=== PATIENT | male | born 1995 | race Two or more races ===

== ENCOUNTER 2017-10-21 06:56 | Emergency (ER) | payer OTHER ==
[~2017-10-21] VITALS: Ht 170.2 cm; Wt 59.0 kg
[~2017-10-21 06:56] MED LIST: ACNE MED; ACNE TREATMENT28 GM TP; ALBU.083IS IH; ALBU4; ALBU90I INH; ALBU90OI INH; ALBU90OI6 INH; AMOX500 PO; Bactrim Ds Tab1 EACH PO; CEPH250A PO; CYCL10 PO; Cortisporin Ear10 ML RIGHTEAR; Cyclobenzaprine5 MG PO; DICL75ER PO; FLUO10 PO; FLUT44OIA IH; HYDACE5 PO; HYDROCODONE; IBUP600 PO; ISOT10 PO; MONT5TCH PO; Naprosyn500 MG PO; PROCODE120 PO; PROM25 PO; Percocet 5-3251 EACH PO; Phenergan25 M1 PO; Protonix40 MG PO; RXONDA4ODT MM; Tylenol With C1 EACH PO; Ultram50 MG PO; VARE1; Veetids 500500 MG PO; Z; Zithromax250 MG PO; Zofran Odt4 MG PO; Zofran Odt4 MG SL; Zofran Odt8 MG SL
[2017-10-21] MEDS ORDERED: [UNRECOGNIZED DRUG - OTHER] (07:32)
[2017-10-21] MEDS ORDERED: IBUP800 PO (08:56)
[2017-10-21] MEDS ORDERED: Zofran Odt4 MG SL (08:56)
== END 2017-10-21 09:12 | disposition home or self-care (01) ==
LOC: ER 06:56
DX: J02.9 Acute pharyngitis, unspecified (principal); B34.9 Viral infection, unspecified; B09 Unspecified viral infection characterized by skin and mucous membrane lesions; J45.909 Unspecified asthma, uncomplicated; Z91.018 Allergy to other foods; Z88.0 Allergy status to penicillin; Z87.891 Personal history of nicotine dependence
CPT/HCPCS: 36415; 87081; 87430; 96361; 96374; 99283; J2405; J7030

== ENCOUNTER → 2018-01-19 | Outpatient (CLI) | payer OTHER ==
[~2018-01-19] MED LIST changes: +IBUP800 PO; +[UNRECOGNIZED DRUG - OTHER]
[2018-01-22 23:11] LABS: CHLAMYDIA TRACHOMATIS, NAA Negative (Negative); NEISSERIA GONORRHOEAE, NAA Negative (Negative)
== END ==
LOC: LAB EV 06:00
PROVIDERS: Physician Assistant
DX: R35.0 Frequency of micturition (principal); R30.0 Dysuria
CPT/HCPCS: 87491; 87591

== ENCOUNTER → 2019-03-05 | Outpatient (CLI) | payer BC, OTHER ==
[~2019-03-05] MED LIST changes: +Pepto-Bismol262 M1 PO
[2019-03-06 16:45] LABS: U Amphetamine Screen Not Detected; U Barbituate Screen Not Detected; U Benzodiazapine Screen Not Detected; U Buprenorphine Screen Not Detected; U Cannabinoids Screen DETECTED; U Cocaine Screen Not Detected; U Methadone Screen Not Detected; U Methamphetamine Screen Not Detected; U Opiates Screen Not Detected; U Oxycodone Screen Not Detected; U Phencyclidine Screen Not Detected; U Propoxyphene Screen Not Detected
== END ==
LOC: LAB SHORT 16:21 → LAB 16:21
PROVIDERS: Family Medicine
DX: Z51.81 Encounter for therapeutic drug level monitoring (principal); Z79.899 Other long term (current) drug therapy

== ENCOUNTER → 2019-03-29 | Outpatient (CLI) | payer BC, OTHER ==
[2019-03-29 16:51] LABS: U Amphetamine Screen Not Detected; U Barbituate Screen Not Detected; U Benzodiazapine Screen Not Detected; U Buprenorphine Screen Not Detected; U Cannabinoids Screen Not Detected; U Cocaine Screen Not Detected; U Methadone Screen Not Detected; U Methamphetamine Screen Not Detected; U Opiates Screen Not Detected; U Oxycodone Screen Not Detected; U Phencyclidine Screen Not Detected; U Propoxyphene Screen Not Detected
== END | disposition home or self-care (01) ==
LOC: LAB SHORT 14:30 → LAB 14:30
PROVIDERS: Family Medicine
DX: Z51.81 Encounter for therapeutic drug level monitoring (principal); Z79.891 Long term (current) use of opiate analgesic

== ENCOUNTER → 2019-04-20 | Outpatient (CLI) | payer BC, OTHER ==
[2019-04-25 00:06] LABS: CHLAMYDIA TRACHOMATIS, NAA Negative (Negative); NEISSERIA GONORRHOEAE, NAA Negative (Negative)
== END | disposition home or self-care (01) ==
LOC: LAB SHORT 13:15 → LAB 13:15
PROVIDERS: Family Medicine
DX: Z11.3 Encounter for screening for infections with a predominantly sexual mode of transmission (principal)
CPT/HCPCS: 87491; 87591

== ENCOUNTER → 2019-04-29 | Outpatient (CLI) | payer OTHER | LOC: LAB SHORT 13:10 → LAB 13:10 | DX: R30.0 Dysuria (principal); R36.9 Urethral discharge, unspecified | CPT/HCPCS: 87086; 87529 ==

== ENCOUNTER → 2019-05-11 | Outpatient (CLI) | payer OTHER | LOC: OLS 11:23 → LAB SHORT 11:23 → LAB 11:23 | DX: R21 Rash and other nonspecific skin eruption (principal); R36.9 Urethral discharge, unspecified ==

== ENCOUNTER 2019-07-04 20:47 | Emergency (ER) | payer BC, OTHER ==
[~2019-07-04] VITALS: Ht 170.2 cm; Wt 54.4 kg
[2019-07-04 21:27] LABS: Source, Urine Clean Catch
[2019-07-04 21:30] LABS: Appearance, Urine Clear (Clear); Bilirubin, Urine Neg (Neg); Blood, Urine Neg (Neg); Color, Urine Yellow (P-Yellow); Glucose Qualitative, Urine Neg (Neg); Ketones, Urine Neg (Neg); Leukocyte Esterase, Urine 1+ (Neg); Nitrite, Urine Neg (Neg); Protein, Urine Neg (Neg); Urobilinogen, Urine NORM (Normal)
[2019-07-04 21:46] LABS: Bacteria Not Seen /hpf; Red Blood Cells, Urine Not Seen /hpf (0-2); Squamous Epithelial Cells Not Seen /hpf (Few); White Blood Cells, Urine Rare /hpf (0-5)
[2019-07-05] MEDS ORDERED: CEPH500 PO (00:01)
[2019-07-09 16:06] LABS: CHLAMYDIA TRACHOMATIS, NAA Negative (Negative); NEISSERIA GONORRHOEAE, NAA Negative (Negative)
== END 2019-07-05 00:15 | disposition home or self-care (01) ==
LOC: ER 20:47
PROVIDERS: Physician Assistant
DX: R30.0 Dysuria (principal); Z91.018 Allergy to other foods; Z87.891 Personal history of nicotine dependence; Z87.448 Personal history of other diseases of urinary system
CPT/HCPCS: 81001; 87086; 87491; 87591; 99283; A9270-GY

== ENCOUNTER → 2019-10-02 | Outpatient (CLI) | payer BC ==
[~2019-10-02] MED LIST changes: +CEPH500 PO
[2019-10-05 00:10] LABS: CHLAMYDIA TRACHOMATIS, NAA Negative (Negative); NEISSERIA GONORRHOEAE, NAA Negative (Negative)
== END ==
LOC: LAB SHORT 16:26 → LAB 16:26
PROVIDERS: Nurse Practitioner Family
DX: Z11.3 Encounter for screening for infections with a predominantly sexual mode of transmission (principal)
CPT/HCPCS: 87491; 87591

== ENCOUNTER 2020-06-13 11:07 | Emergency (ER) | payer BC ==
[~2020-06-13] VITALS: Ht 170.2 cm; Wt 55.8 kg
[2020-06-13 11:30] LABS: Source, Urine Clean Catch
[2020-06-13] MEDS ORDERED: HYDROCODONE-AC1 EAC7 PO (11:36)
[2020-06-13] MEDS ORDERED: Klonopin0.5 MG PO (11:36)
[2020-06-13] MEDS ORDERED: ACYCLOVIR400 MG PO (11:37)
[2020-06-13] MEDS ORDERED: AMPDEX10 (11:37)
[2020-06-13 11:41] LABS: Appearance, Urine Clear (Clear); Bilirubin, Urine Neg (Neg); Blood, Urine Neg (Neg); Color, Urine Yellow (P-Yellow); Glucose Qualitative, Urine Neg (Neg); Ketones, Urine Neg (Neg); Leukocyte Esterase, Urine Neg (Neg); Nitrite, Urine Neg (Neg); Protein, Urine Neg (Neg); Urobilinogen, Urine NORM (Normal); pH, Urine 6.5 (5.0-8.0)
[2020-06-13 11:45] LABS: BASOPHILS ABSOLUTE AUTO 0.01 K/mm3 (0.00-0.23); BASOPHILS PERCENT AUTO 0 % (0-2); EOSINOPHILS ABSOLUTE AUTO 0.01 K/mm3 (0.00-0.68); EOSINOPHILS PERCENT AUTO 0 % (0-6); Hematocrit 44.2 % (37.0-53.0); Hemoglobin 15.1 g/dL (13.5-17.5); IMMATURE GRAN ABSOLUTE AUTO 0.01 K/mm3 (0.00-0.10); IMMATURE GRAN PERCENT AUTO 0 % (0-1); LYMPHOCYTES ABSOLUTE AUTO 1.34 K/mm3 (0.84-5.20); LYMPHOCYTES PERCENT AUTO 23 % (21-46); MONOCYTES ABSOLUTE AUTO 0.45 K/mm3 (0.16-1.47); MONOCYTES PERCENT AUTO 8 % (4-13); Mean Corpuscular HGB 31.5 pg (26.0-34.0); Mean Corpuscular HGB Conc 34.2 g/dL (31.5-36.5); Mean Corpuscular Volume 92 fL (80-100); Mean Platelet Volume 11.1 fL (9.1-12.4); NEUTROPHILS PERCENT AUTO 69 % (41-73); Platelet Count 202 K/mm3 (150-400); RDW Coefficient Variation 10.9 % (11.7-14.2); RDW Standard Deviation 37.2 fL (35.1-46.3); White Blood Cell Count 5.82 K/mm3 (4.00-11.30)
[2020-06-13 12:01] LABS: Alanine Aminotransfer (ALT/SGP 22 U/L (12-78); Albumin, Blood 4.6 g/dL (3.4-5.0); Albumin/Globulin Ratio 1.5 (0.8-1.8); Alk Phos 64 U/L (50-136); Anion Gap 4 mmol/L (6-16); Aspartate Aminotrans (AST/SGOT 26 U/L (12-37); Bilirubin, Total 2.1 mg/dL (0.1-1.0); Blood Urea Nitrogen 13 mg/dL (8-24); Bun/Creatinine Ratio 17.3 (12.0-20.0); CO2, Blood 28 mmol/L (21-32); Calcium, Blood 9.3 mg/dL (8.5-10.1); Chloride, Blood 109 mmol/L (98-108); Creatinine, Blood 0.75 mg/dL (0.60-1.20); Globulin, Blood 3.1 g/dL (2.2-4.0); Glomerular Filtration Rate >60 (60-); Glucose, Blood 96 mg/dL (70-99); Potassium, Blood 4.2 mmol/L (3.5-5.5); Sodium, Blood 141 mmol/L (136-145); Total Protein, Blood 7.7 g/dL (6.4-8.2)
[2020-06-13 12:04] LABS: International Normalized Ratio 1.09; Prothrombin Time Results 11.6 Sec (9.7-11.5)
== END 2020-06-13 13:05 | disposition home or self-care (01) ==
LOC: ER 11:07
PROVIDERS: Emergency Medicine
DX: K62.9 Disease of anus and rectum, unspecified (principal); F32.9 Major depressive disorder, single episode, unspecified; J45.909 Unspecified asthma, uncomplicated; Z79.899 Other long term (current) drug therapy; Z87.891 Personal history of nicotine dependence; Z91.02 Food additives allergy status; Z91.018 Allergy to other foods
CPT/HCPCS: 36415; 80053; 81003; 82272; 85025; 85610; 85730; 86850; 86900; 86901; 99283

== ENCOUNTER → 2020-06-26 | Outpatient (CLI) | payer BC ==
[~2020-06-26] MED LIST changes: +ACYCLOVIR400 MG PO; +ADDERALL 10 MG10 MG PO; +AMPDEX10; +HYDROCODONE-AC1 EAC7 PO; +Klonopin0.5 MG PO
[2020-06-27 13:10] LABS: ADENOVIRUS F 40/41 Not Detected (Not Detected); ASTROVIRUS Not Detected (Not Detected); C DIFFICILE TOXIN A/B Not Detected (Not Detected); CAMPYLOBACTER Not Detected (Not Detected); CRYPTOSPORIDIUM Not Detected (Not Detected); CYCLOSPORA CAYETANENSIS Not Detected (Not Detected); ENTAMOEBA HISTOLYTICA Not Detected (Not Detected); ENTEROAGGREGATIVE E COLI Not Detected (Not Detected); ENTEROPATHOGENIC E COLI Not Detected (Not Detected); ENTEROTOXIGENIC E COLI Not Detected (Not Detected); GIARDIA LAMBLIA Not Detected (Not Detected); NOROVIRUS GI/GII Not Detected (Not Detected); PLESIOMONAS SHIGELLOIDES Not Detected (Not Detected); ROTAVIRUS A Not Detected (Not Detected); SALMONELLA Not Detected (Not Detected); SAPOVIRUS Not Detected (Not Detected); SHIGA-TOXIN-PRODUCING E COLI Not Detected (Not Detected); SHIGELLA/ENTEROINVASIVE E COLI Not Detected (Not Detected); VIBRIO Not Detected (Not Detected); VIBRIO CHOLERAE Not Detected (Not Detected); YERSINIA ENTEROCOLITICA Not Detected (Not Detected)
== END | disposition home or self-care (01) ==
LOC: LAB SHORT 08:00 → LAB 08:00 → LAB FUT 06-15 11:15
PROVIDERS: Internal Medicine Gastroenterology
DX: R19.7 Diarrhea, unspecified (principal)
CPT/HCPCS: 0097U

== ENCOUNTER 2020-07-02 09:16 | Day surgery (SDC) | payer BC, OTHER ==
[~2020-07-02] VITALS: Ht 170.2 cm; Wt 53.8 kg
[~2020-07-02 09:16] MED LIST changes: -ADDERALL 10 MG10 MG PO
[2020-07-02] MEDS ORDERED: ADDERALL 10 MG10 MG PO (09:29)
--- NOTE | 2020-07-02 12:24 | NUR ---
07/02/20 1224 Angela Stokes History, Chart, Medications and Allergies reviewed before start of procedure.PATIENT DETERMINED TO BE ASA APPROPRIATE FOR PROPOFOL SEDATION PRIOR TO START OF PROCEDURE BY .MONITOR INTACT WITH CONTINUOUS PULSE OXIMETRY AND INTERMITTENT BP.3-LEAD EKG REVIEWED WITH PHYSICIAN PRIOR TO START OF PROCEDURE.O2 VIA N/C INTACT THROUGHOUT SEDATION/PROCEDURE.
--- NOTE | 2020-07-02 13:03 | NUR ---
PT WITH C/O 01/30 "CRAMPING, PRESSURE" IN ABDOMEN. DR. JESSICA HAD CONSULTED WITH THE PT AND ADVISED HIM TO EXPECT SOME ABDOMEN PAIN. DR. JESSICA WAS CONSULTED VIA PHONE AND ORDERED 4 MG ZOFRAN IV AND LR IV FLUID TO INCREASE TO A STEADY DRIP. PT ALSO GIVEN WARM FLUIDS TO DRINK. VSS. WILL CONTINUE TO MONITOR.
--- NOTE | 2020-07-02 13:30 | NUR ---
ASSUMED CARE OF PT. PT C/O MIDEPIGASTRIC PAIN DISCRIBED CRAMPING. PT GIVEN PHENERGAN 25MG DILUTE IN 10CC AND GIVEN SLOWING IN RUNNING IV. PT BED LAYED BACK FOR PT COMFORT. WILL CONTINUE TO MONITOR PT.
--- NOTE | 2020-07-02 14:30 | NUR ---
Patient up to Ambulate independently. Gait steady. Discharge instructions reviewed with patient. Patient verbalizes understanding. Copy given to patient to take home. Discharged via wheelchair to private car for ride home. PT STATES HE STILL "FEELS PRESSURE IN THE ABDOMEN, BUT FEELS COMFORTABLE TO GO HOME." PT WAS ADVISED TO DRINK WARM FLUIDS, TAKE OTC PAIN RELIEVER AND TO WALK AROUND TO ENCOURGE THE GAS TO ESCAPE. PT ADVISED TO SEEK MEDICAL ATTENTION IF PAIN CONTINUES OR WORSENS OVER THE NEXT 24 HRS. PT STATES UNDERSTANDING.
== END 2020-07-02 23:11 | disposition home or self-care (01) ==
LOC: ORSCMMR 09:16 → ORD 10:00 → ORSCMMR 23:11
PROVIDERS: Internal Medicine Gastroenterology
PROC: 0DBE8ZX Excision of Large Intestine, Via Natural or Artificial Opening Endoscopic, Diagnostic (ICD-10-PCS; principal; 2020-07-02 10:00)
DX: K62.5 Hemorrhage of anus and rectum (principal); R19.7 Diarrhea, unspecified; R10.84 Generalized abdominal pain
CPT/HCPCS: 88305; J2405; J2550; J2704; J7120

== ENCOUNTER → 2020-08-28 | Outpatient (CLI) | payer BC, OTHER ==
[~2020-08-28] MED LIST changes: +ADDERALL 10 MG10 MG PO; +Bentyl20 MG PO; +IMODIUM A-D2 M1; +LITH300C PO; +ONDA4ODT MM; +Pepcid20 MG PO; +Tenex1 MG PO
[2020-08-28 13:15] LABS: BASOPHILS ABSOLUTE AUTO 0.03 K/mm3 (0.00-0.23); BASOPHILS PERCENT AUTO 0 % (0-2); EOSINOPHILS ABSOLUTE AUTO 0.01 K/mm3 (0.00-0.68); EOSINOPHILS PERCENT AUTO 0 % (0-6); Hematocrit 47.2 % (37.0-53.0); Hemoglobin 16.7 g/dL (13.5-17.5); IMMATURE GRAN ABSOLUTE AUTO 0.02 K/mm3 (0.00-0.10); IMMATURE GRAN PERCENT AUTO 0 % (0-1); LYMPHOCYTES ABSOLUTE AUTO 1.53 K/mm3 (0.84-5.20); LYMPHOCYTES PERCENT AUTO 16 % (21-46); MONOCYTES ABSOLUTE AUTO 0.62 K/mm3 (0.16-1.47); MONOCYTES PERCENT AUTO 7 % (4-13); Mean Corpuscular HGB 31.9 pg (26.0-34.0); Mean Corpuscular HGB Conc 35.4 g/dL (31.5-36.5); Mean Corpuscular Volume 90 fL (80-100); NEUTROPHILS ABSOLUTE AUTO 7.25 K/mm3 (1.96-9.15); NEUTROPHILS PERCENT AUTO 77 % (41-73); Platelet Count 233 K/mm3 (150-400); RDW Coefficient Variation 10.9 % (11.7-14.2); RDW Standard Deviation 35.4 fL (35.1-46.3); Red Blood Cell Count 5.23 M/mm3 (4.30-5.90); White Blood Cell Count 9.46 K/mm3 (4.00-11.30)
[2020-08-28 13:23] LABS: Alanine Aminotransfer (ALT/SGP 27 U/L (12-78); Albumin, Blood 5.1 g/dL (3.4-5.0); Albumin/Globulin Ratio 1.6 (0.8-1.8); Alk Phos 61 U/L (40-126); Anion Gap 9 mmol/L (6-16); Aspartate Aminotrans (AST/SGOT 14 U/L (12-37); Bilirubin, Total 4.1 mg/dL (0.1-1.0); Blood Urea Nitrogen 12 mg/dL (8-24); Bun/Creatinine Ratio 12.4 (12.0-20.0); CO2, Blood 27 mmol/L (21-32); Chloride, Blood 100 mmol/L (98-108); Creatinine, Blood 0.97 mg/dL (0.60-1.20); Globulin, Blood 3.2 g/dL (2.2-4.0); Glomerular Filtration Rate >60 (60-); Glucose, Blood 103 mg/dL (70-99); Potassium, Blood 3.9 mmol/L (3.5-5.5); Sodium, Blood 136 mmol/L (136-145); Total Protein, Blood 8.3 g/dL (6.4-8.2)
[2020-08-28 14:21] LABS: Bilirubin, Direct 0.3 mg/dL (0.0-0.3); Bilirubin, Indirect 3.8 mg/dL (0.1-0.7)
== END | disposition home or self-care (01) ==
LOC: LAB SHORT 13:08 → PLD 13:08
PROVIDERS: Physician Assistant
DX: R00.2 Palpitations (principal); E80.6 Other disorders of bilirubin metabolism
CPT/HCPCS: 80053; 82247; 82248; 84443; 85025

== ENCOUNTER 2020-10-31 14:00 | Emergency (ER) | payer OTHER ==
[~2020-10-31] VITALS: Ht 167.6 cm; Wt 56.7 kg
[~2020-10-31 14:00] MED LIST changes: -Bentyl20 MG PO; -IMODIUM A-D2 M1; -LITH300C PO; -ONDA4ODT MM; -Pepcid20 MG PO; -Tenex1 MG PO
[2020-10-31] MEDS ORDERED: Tenex1 MG PO (14:22)
[2020-10-31 15:09] LABS: BASOPHILS ABSOLUTE AUTO 0.02 K/mm3 (0.00-0.23); BASOPHILS PERCENT AUTO 0 % (0-2); EOSINOPHILS ABSOLUTE AUTO 0.05 K/mm3 (0.00-0.68); EOSINOPHILS PERCENT AUTO 1 % (0-6); Hematocrit 39.8 % (37.0-53.0); Hemoglobin 14.2 g/dL (13.5-17.5); IMMATURE GRAN ABSOLUTE AUTO 0.01 K/mm3 (0.00-0.10); IMMATURE GRAN PERCENT AUTO 0 % (0-1); LYMPHOCYTES ABSOLUTE AUTO 1.31 K/mm3 (0.84-5.20); LYMPHOCYTES PERCENT AUTO 21 % (21-46); MONOCYTES ABSOLUTE AUTO 0.46 K/mm3 (0.16-1.47); MONOCYTES PERCENT AUTO 7 % (4-13); Mean Corpuscular HGB 32.4 pg (26.0-34.0); Mean Corpuscular HGB Conc 35.7 g/dL (31.5-36.5); Mean Corpuscular Volume 91 fL (80-100); Mean Platelet Volume 10.6 fL (9.1-12.4); NEUTROPHILS ABSOLUTE AUTO 4.37 K/mm3 (1.96-9.15); NEUTROPHILS PERCENT AUTO 70 % (41-73); Platelet Count 172 K/mm3 (150-400); Red Blood Cell Count 4.38 M/mm3 (4.30-5.90); White Blood Cell Count 6.22 K/mm3 (4.00-11.30)
[2020-10-31 15:31] LABS: Alanine Aminotransfer (ALT/SGP 20 U/L (12-78); Albumin/Globulin Ratio 1.4 (0.8-1.8); Alk Phos 54 U/L (50-136); Anion Gap 3 mmol/L (6-16); Aspartate Aminotrans (AST/SGOT 15 U/L (12-37); Bilirubin, Total 2.8 mg/dL (0.1-1.0); Blood Urea Nitrogen 12 mg/dL (8-24); CO2, Blood 29 mmol/L (21-32); Calcium, Blood 8.7 mg/dL (8.5-10.1); Chloride, Blood 110 mmol/L (98-108); Creatinine, Blood 0.86 mg/dL (0.60-1.20); Globulin, Blood 2.8 g/dL (2.2-4.0); Glomerular Filtration Rate >60 (60-); Glucose, Blood 94 mg/dL (70-99); Potassium, Blood 3.7 mmol/L (3.5-5.5); Sodium, Blood 142 mmol/L (136-145); Total Protein, Blood 6.8 g/dL (6.4-8.2)
== END 2020-10-31 16:12 | disposition home or self-care (01) ==
LOC: ER 14:00
PROVIDERS: Physician Assistant
DX: L27.0 Generalized skin eruption due to drugs and medicaments taken internally (principal); R42 Dizziness and giddiness; T46.5X5A Adverse effect of other antihypertensive drugs, initial encounter; Z87.891 Personal history of nicotine dependence; Z79.899 Other long term (current) drug therapy
CPT/HCPCS: 80053; 85025; 99283

== ENCOUNTER 2020-11-24 06:12 | Emergency (ER) | payer OTHER ==
[~2020-11-24] VITALS: Ht 170.2 cm; Wt 54.4 kg
[~2020-11-24 06:12] MED LIST changes: -Bentyl20 MG PO; -IMODIUM A-D2 M1; -LITH300C PO; -ONDA4ODT MM; -Pepcid20 MG PO
[2020-11-24] MEDS ORDERED: LITH300C PO ×2 (06:34→06:35)
[2020-11-24 07:39] LABS: BASOPHILS ABSOLUTE AUTO 0.03 K/mm3 (0.00-0.23); BASOPHILS PERCENT AUTO 0 % (0-2); EOSINOPHILS ABSOLUTE AUTO 0.08 K/mm3 (0.00-0.68); EOSINOPHILS PERCENT AUTO 1 % (0-6); Hematocrit 43.9 % (37.0-53.0); Hemoglobin 15.1 g/dL (13.5-17.5); IMMATURE GRAN ABSOLUTE AUTO 0.06 K/mm3 (0.00-0.10); IMMATURE GRAN PERCENT AUTO 0 % (0-1); LYMPHOCYTES ABSOLUTE AUTO 1.52 K/mm3 (0.84-5.20); LYMPHOCYTES PERCENT AUTO 10 % (21-46); MONOCYTES ABSOLUTE AUTO 0.59 K/mm3 (0.16-1.47); MONOCYTES PERCENT AUTO 4 % (4-13); Mean Corpuscular HGB 32.2 pg (26.0-34.0); Mean Corpuscular HGB Conc 34.4 g/dL (31.5-36.5); Mean Corpuscular Volume 94 fL (80-100); Mean Platelet Volume 11.4 fL (9.1-12.4); NEUTROPHILS ABSOLUTE AUTO 12.51 K/mm3 (1.96-9.15); NEUTROPHILS PERCENT AUTO 85 % (41-73); Platelet Count 173 K/mm3 (150-400); RDW Coefficient Variation 11.2 % (11.7-14.2); RDW Standard Deviation 38.2 fL (35.1-46.3); Red Blood Cell Count 4.69 M/mm3 (4.30-5.90); White Blood Cell Count 14.79 K/mm3 (4.00-11.30)
[2020-11-24 07:59] LABS: Alanine Aminotransfer (ALT/SGP 16 U/L (12-78); Albumin, Blood 4.5 g/dL (3.4-5.0); Albumin/Globulin Ratio 1.6 (0.8-1.8); Alk Phos 67 U/L (50-136); Anion Gap 2 mmol/L (6-16); Aspartate Aminotrans (AST/SGOT 12 U/L (12-37); Bilirubin, Total 1.5 mg/dL (0.1-1.0); Blood Urea Nitrogen 14 mg/dL (8-24); Bun/Creatinine Ratio 14.5 (12.0-20.0); CO2, Blood 30 mmol/L (21-32); Calcium, Blood 8.7 mg/dL (8.5-10.1); Chloride, Blood 106 mmol/L (98-108); Creatinine, Blood 0.97 mg/dL (0.60-1.20); Globulin, Blood 2.9 g/dL (2.2-4.0); Glomerular Filtration Rate >60 (60-); Glucose, Blood 91 mg/dL (70-99); Potassium, Blood 3.6 mmol/L (3.5-5.5); Sodium, Blood 138 mmol/L (136-145); Total Protein, Blood 7.4 g/dL (6.4-8.2); Troponin I <0.015 ng/mL (0.000-0.040)
== END 2020-11-24 09:56 | disposition home or self-care (01) ==
LOC: ER 06:12
PROVIDERS: Emergency Medicine
DX: R04.2 Hemoptysis (principal); Z87.891 Personal history of nicotine dependence
CPT/HCPCS: 36415; 71046; 80053; 83690; 84484; 85025; 93005; 93010; 99284-25

== ENCOUNTER → 2020-11-24 | Outpatient (CLI) | payer OTHER ==
[~2020-11-24] MED LIST changes: +Bentyl20 MG PO; +IMODIUM A-D2 M1; +LITH300C PO; +ONDA4ODT MM; +Pepcid20 MG PO; +Tenex1 MG PO
== END | disposition home or self-care (01) ==
LOC: LAB SHORT 16:20 → PLD 16:20
DX: N39.0 Urinary tract infection, site not specified (principal)
CPT/HCPCS: 87086

== ENCOUNTER 2020-12-01 10:24 | Emergency (ER) | payer OTHER ==
[~2020-12-01] VITALS: Ht 170.2 cm; Wt 55.8 kg
[~2020-12-01 10:24] MED LIST changes: +LITH300C PO
[2020-12-01 12:55] LABS: BASOPHILS ABSOLUTE AUTO 0.02 K/mm3 (0.00-0.23); BASOPHILS PERCENT AUTO 0 % (0-2); EOSINOPHILS ABSOLUTE AUTO 0.02 K/mm3 (0.00-0.68); EOSINOPHILS PERCENT AUTO 0 % (0-6); Hematocrit 42.2 % (37.0-53.0); Hemoglobin 14.5 g/dL (13.5-17.5); IMMATURE GRAN ABSOLUTE AUTO 0.01 K/mm3 (0.00-0.10); IMMATURE GRAN PERCENT AUTO 0 % (0-1); LYMPHOCYTES ABSOLUTE AUTO 0.77 K/mm3 (0.84-5.20); LYMPHOCYTES PERCENT AUTO 13 % (21-46); MONOCYTES PERCENT AUTO 5 % (4-13); Mean Corpuscular HGB Conc 34.4 g/dL (31.5-36.5); Mean Corpuscular Volume 93 fL (80-100); Mean Platelet Volume 11.1 fL (9.1-12.4); NEUTROPHILS ABSOLUTE AUTO 4.86 K/mm3 (1.96-9.15); NEUTROPHILS PERCENT AUTO 81 % (41-73); Platelet Count 204 K/mm3 (150-400); RDW Coefficient Variation 10.8 % (11.7-14.2); RDW Standard Deviation 36.6 fL (35.1-46.3); Red Blood Cell Count 4.53 M/mm3 (4.30-5.90); White Blood Cell Count 5.98 K/mm3 (4.00-11.30)
[2020-12-01 13:13] LABS: Alanine Aminotransfer (ALT/SGP 19 U/L (12-78); Albumin, Blood 4.1 g/dL (3.4-5.0); Albumin/Globulin Ratio 1.2 (0.8-1.8); Alk Phos 56 U/L (50-136); Anion Gap 4 mmol/L (6-16); Aspartate Aminotrans (AST/SGOT 12 U/L (12-37); Bilirubin, Total 0.9 mg/dL (0.1-1.0); Blood Urea Nitrogen 7 mg/dL (8-24); Bun/Creatinine Ratio 9.1 (12.0-20.0); CO2, Blood 26 mmol/L (21-32); Calcium, Blood 8.7 mg/dL (8.5-10.1); Chloride, Blood 112 mmol/L (98-108); Creatinine, Blood 0.77 mg/dL (0.60-1.20); Globulin, Blood 3.4 g/dL (2.2-4.0); Glomerular Filtration Rate >60 (60-); Glucose, Blood 90 mg/dL (70-99); Potassium, Blood 3.6 mmol/L (3.5-5.5); Sodium, Blood 142 mmol/L (136-145); Total Protein, Blood 7.5 g/dL (6.4-8.2)
[2020-12-01] MEDS ORDERED: ONDA4ODT MM (14:12)
[2020-12-01] MEDS ORDERED: PROM25 PO (14:12)
== END 2020-12-01 14:30 | disposition home or self-care (01) ==
LOC: ER 10:24
PROVIDERS: Emergency Medicine
DX: S06.0X0A Concussion without loss of consciousness, initial encounter (principal); Z79.899 Other long term (current) drug therapy; Z87.891 Personal history of nicotine dependence
CPT/HCPCS: 70450; 80053; 83690; 85025; 96374; 96375; 99284-25; J1885; J2550; J7030

== ENCOUNTER 2020-12-04 10:04 | Emergency (ER) | payer OTHER ==
[~2020-12-04] VITALS: Ht 170.2 cm; Wt 54.4 kg
[~2020-12-04 10:04] MED LIST changes: +ONDA4ODT MM
[2020-12-04] MEDS ORDERED: IMODIUM A-D2 M1 (10:18)
[2020-12-04 10:39] LABS: BASOPHILS ABSOLUTE AUTO 0.03 K/mm3 (0.00-0.23); BASOPHILS PERCENT AUTO 1 % (0-2); EOSINOPHILS ABSOLUTE AUTO 0.01 K/mm3 (0.00-0.68); EOSINOPHILS PERCENT AUTO 0 % (0-6); Hematocrit 42.2 % (37.0-53.0); Hemoglobin 15.3 g/dL (13.5-17.5); IMMATURE GRAN ABSOLUTE AUTO 0.01 K/mm3 (0.00-0.10); IMMATURE GRAN PERCENT AUTO 0 % (0-1); LYMPHOCYTES PERCENT AUTO 12 % (21-46); MONOCYTES ABSOLUTE AUTO 0.38 K/mm3 (0.16-1.47); MONOCYTES PERCENT AUTO 6 % (4-13); Mean Corpuscular HGB 32.6 pg (26.0-34.0); Mean Corpuscular HGB Conc 36.3 g/dL (31.5-36.5); Mean Corpuscular Volume 90 fL (80-100); NEUTROPHILS ABSOLUTE AUTO 4.81 K/mm3 (1.96-9.15); NEUTROPHILS PERCENT AUTO 81 % (41-73); Platelet Count 223 K/mm3 (150-400); RDW Standard Deviation 35.9 fL (35.1-46.3); Red Blood Cell Count 4.69 M/mm3 (4.30-5.90); White Blood Cell Count 5.94 K/mm3 (4.00-11.30)
[2020-12-04 10:55] LABS: Alanine Aminotransfer (ALT/SGP 20 U/L (12-78); Albumin, Blood 4.7 g/dL (3.4-5.0); Albumin/Globulin Ratio 1.5 (0.8-1.8); Alk Phos 61 U/L (50-136); Anion Gap 6 mmol/L (6-16); Aspartate Aminotrans (AST/SGOT 14 U/L (12-37); Bilirubin, Total 1.1 mg/dL (0.1-1.0); Blood Urea Nitrogen 7 mg/dL (8-24); Bun/Creatinine Ratio 9.2 (12.0-20.0); CO2, Blood 25 mmol/L (21-32); Calcium, Blood 9.2 mg/dL (8.5-10.1); Chloride, Blood 109 mmol/L (98-108); Creatinine, Blood 0.76 mg/dL (0.60-1.20); Globulin, Blood 3.1 g/dL (2.2-4.0); Glomerular Filtration Rate >60 (60-); Glucose, Blood 130 mg/dL (70-99); Potassium, Blood 3.8 mmol/L (3.5-5.5); Sodium, Blood 140 mmol/L (136-145); Total Protein, Blood 7.8 g/dL (6.4-8.2)
[2020-12-04] MEDS ORDERED: ONDA4ODT MM (12:49)
[2020-12-04] MEDS ORDERED: Bentyl20 MG PO (12:49)
[2020-12-04] MEDS ORDERED: Pepcid20 MG PO (12:59)
== END 2020-12-04 13:10 | disposition home or self-care (01) ==
LOC: ER 10:04
PROVIDERS: Emergency Medicine
DX: R10.12 Left upper quadrant pain (principal); R19.7 Diarrhea, unspecified; R11.2 Nausea with vomiting, unspecified; Z79.899 Other long term (current) drug therapy; Z87.891 Personal history of nicotine dependence; K58.0 Irritable bowel syndrome with diarrhea
CPT/HCPCS: 0097U; 36415; 71045; 80053; 83690; 83735; 85025; 93005; 93010; 96372-59; 96374; 96375; 99284-25; J0500; J2405; J7120

== ENCOUNTER → 2021-02-05 | Outpatient (CLI) | payer OTHER ==
[~2021-02-05] MED LIST changes: +Bentyl20 MG PO; +IMODIUM A-D2 M1; +Pepcid20 MG PO
[2021-02-05 17:43] LABS: BASOPHILS ABSOLUTE AUTO 0.02 K/mm3 (0.00-0.23); BASOPHILS PERCENT AUTO 0 % (0-2); EOSINOPHILS ABSOLUTE AUTO 0.03 K/mm3 (0.00-0.68); EOSINOPHILS PERCENT AUTO 0 % (0-6); Hematocrit 42.9 % (37.0-53.0); Hemoglobin 15.9 g/dL (13.5-17.5); IMMATURE GRAN ABSOLUTE AUTO 0.03 K/mm3 (0.00-0.10); IMMATURE GRAN PERCENT AUTO 0 % (0-1); LYMPHOCYTES ABSOLUTE AUTO 1.29 K/mm3 (0.84-5.20); LYMPHOCYTES PERCENT AUTO 13 % (21-46); MONOCYTES ABSOLUTE AUTO 0.53 K/mm3 (0.16-1.47); MONOCYTES PERCENT AUTO 6 % (4-13); Mean Corpuscular HGB 32.8 pg (26.0-34.0); Mean Corpuscular HGB Conc 37.1 g/dL (31.5-36.5); Mean Corpuscular Volume 89 fL (80-100); Mean Platelet Volume 10.7 fL (9.1-12.4); NEUTROPHILS ABSOLUTE AUTO 7.71 K/mm3 (1.96-9.15); NEUTROPHILS PERCENT AUTO 80 % (41-73); Platelet Count 222 K/mm3 (150-400); RDW Standard Deviation 35.5 fL (35.1-46.3); Red Blood Cell Count 4.85 M/mm3 (4.30-5.90); White Blood Cell Count 9.61 K/mm3 (4.00-11.30)
[2021-02-05 18:05] LABS: Alanine Aminotransfer (ALT/SGP 20 U/L (12-78); Albumin, Blood 4.6 g/dL (3.4-5.0); Albumin/Globulin Ratio 1.5 (0.8-1.8); Alk Phos 74 U/L (40-126); Anion Gap 9 mmol/L (6-16); Aspartate Aminotrans (AST/SGOT 13 U/L (12-37); Bilirubin, Total 1.6 mg/dL (0.1-1.0); Blood Urea Nitrogen 11 mg/dL (8-24); Bun/Creatinine Ratio 15.1 (12.0-20.0); CO2, Blood 29 mmol/L (21-32); Calcium, Blood 8.7 mg/dL (8.5-10.1); Chloride, Blood 103 mmol/L (98-108); Creatinine, Blood 0.73 mg/dL (0.60-1.20); Globulin, Blood 3.1 g/dL (2.2-4.0); Glomerular Filtration Rate >60 (60-); Glucose, Blood 163 mg/dL (70-99); Potassium, Blood 3.8 mmol/L (3.5-5.5); Sodium, Blood 141 mmol/L (136-145); Thyroid Stimulating Hormone 1.049 uIU/mL (0.360-4.800); Total Protein, Blood 7.7 g/dL (6.4-8.2)
== END | disposition home or self-care (01) ==
LOC: LAB 17:37 → LAB SHORT 17:37
PROVIDERS: Chiropractor
DX: R53.83 Other fatigue (principal); R41.3 Other amnesia
CPT/HCPCS: 80053; 84443; 85025

== ENCOUNTER → 2021-03-03 | Outpatient (CLI) | payer OTHER ==
[2021-03-03 18:23] LABS: U Amphetamine Screen Not Detected; U Barbituate Screen Not Detected; U Benzodiazapine Screen Not Detected; U Buprenorphine Screen Not Detected; U Cannabinoids Screen Not Detected; U Cocaine Screen Not Detected; U Methadone Screen Not Detected; U Methamphetamine Screen Not Detected; U Opiates Screen Not Detected; U Oxycodone Screen Not Detected; U Phencyclidine Screen Not Detected; U Propoxyphene Screen Not Detected
== END ==
LOC: LAB 15:30 → LAB SHORT 15:30
PROVIDERS: Nurse Practitioner Family
DX: F13.10 Sedative, hypnotic or anxiolytic abuse, uncomplicated (principal)

== ENCOUNTER → 2021-09-23 | Outpatient (CLI) | payer OTHER ==
[2021-09-23 11:51] LABS: Source, Urine Clean Catch
[2021-09-23 13:20] LABS: Appearance, Urine Clear (Clear); Bilirubin, Urine Neg (Neg); Blood, Urine Neg (Neg); Color, Urine Yellow (P-Yellow); Glucose Qualitative, Urine Neg (Neg); Ketones, Urine Neg (Neg); Leukocyte Esterase, Urine Neg (Neg); Nitrite, Urine Neg (Neg); Protein, Urine Neg (Neg); Urobilinogen, Urine NORM (Normal)
== END | disposition home or self-care (01) ==
LOC: LAB SHORT 11:46 → LAB FUT 10-28 13:45
PROVIDERS: Urology
DX: R35.0 Frequency of micturition (principal)
CPT/HCPCS: 81003; 87086

== ENCOUNTER → 2021-11-19 | Outpatient (CLI) | payer OTHER | END | disposition home or self-care (01) | LOC: LAB SHORT 10:45 → LAB 10:45 → LAB FUT 11-16 08:20 | DX: R19.7 Diarrhea, unspecified (principal) | CPT/HCPCS: 36415 ==

== ENCOUNTER 2021-12-05 20:20 | Emergency (ER) | payer OTHER ==
[~2021-12-05] VITALS: Ht 170.2 cm; Wt 55.8 kg
== END 2021-12-06 00:01 | disposition home or self-care (01) ==
LOC: ER 20:20
DX: M54.50 Low back pain, unspecified (principal); G89.29 Other chronic pain; R11.2 Nausea with vomiting, unspecified; M25.552 Pain in left hip; M25.551 Pain in right hip; J45.909 Unspecified asthma, uncomplicated; F32.A Depression, unspecified; Z79.899 Other long term (current) drug therapy; Z87.891 Personal history of nicotine dependence
CPT/HCPCS: 96374; 96375; 99283-25; A9270; J1885; J2405; J7030

== ENCOUNTER → 2022-02-04 | Outpatient (CLI) | payer OTHER ==
[2022-02-04 11:13] LABS: Source, Urine Clean Catch
[2022-02-04 13:39] LABS: Appearance, Urine Clear (Clear); Bilirubin, Urine Neg (Neg); Blood, Urine Neg (Neg); Color, Urine Yellow (P-Yellow); Glucose Qualitative, Urine Neg (Neg); Ketones, Urine 2+ (Neg); Leukocyte Esterase, Urine Neg (Neg); Nitrite, Urine Neg (Neg); Protein, Urine 1+ (Neg); Urobilinogen, Urine NORM (Normal)
== END | disposition home or self-care (01) ==
LOC: LAB SHORT 11:12 → LAB 11:12 → LAB FUT 02-03 14:35 → EDSTATUS 02-03 14:35
PROVIDERS: Urology
DX: R35.0 Frequency of micturition (principal)
CPT/HCPCS: 87086

== ENCOUNTER 2022-04-02 19:12 | Emergency (ER) | payer OTHER ==
[~2022-04-02] VITALS: Ht 170.2 cm; Wt 56.7 kg
== END 2022-04-02 20:02 | disposition left against medical advice (07) ==
LOC: ER 19:12
DX: F11.23 Opioid dependence with withdrawal (principal); Z53.21 Procedure and treatment not carried out due to patient leaving prior to being seen by health care provider
CPT/HCPCS: 99283

== ENCOUNTER → 2022-05-05 | Outpatient (CLI) | payer OTHER ==
[~2022-05-05] MED LIST changes: +CLOMIPRAMINE HC25 M1 PO
[2022-05-05 17:19] LABS: U Amphetamine Screen Not Detected; U Barbituate Screen Not Detected; U Benzodiazapine Screen Not Detected; U Buprenorphine Screen Not Detected; U Cannabinoids Screen DETECTED; U Cocaine Screen Not Detected; U Methadone Screen Not Detected; U Methamphetamine Screen Not Detected; U Opiates Screen Not Detected; U Oxycodone Screen Not Detected; U Phencyclidine Screen Not Detected; U Propoxyphene Screen Not Detected
== END ==
LOC: LAB SHORT 11:00 → LAB 11:00
PROVIDERS: Nurse Practitioner Family
DX: Z51.81 Encounter for therapeutic drug level monitoring (principal); Z79.899 Other long term (current) drug therapy

== ENCOUNTER 2022-05-17 23:54 | Emergency (ER) | payer OTHER ==
[~2022-05-17] VITALS: Ht 170.2 cm; Wt 54.0 kg
[~2022-05-17 23:54] MED LIST changes: -CLOMIPRAMINE HC25 M1 PO
[2022-05-18] MEDS ORDERED: CLOMIPRAMINE HC25 M1 PO (00:29)
[2022-05-18 00:52] LABS: BASOPHILS ABSOLUTE AUTO 0.03 K/mm3 (0.00-0.23); BASOPHILS PERCENT AUTO 0 % (0-2); EOSINOPHILS ABSOLUTE AUTO 0.01 K/mm3 (0.00-0.68); EOSINOPHILS PERCENT AUTO 0 % (0-6); Hematocrit 42.8 % (37.0-53.0); Hemoglobin 14.9 g/dL (13.5-17.5); IMMATURE GRAN ABSOLUTE AUTO 0.04 K/mm3 (0.00-0.10); IMMATURE GRAN PERCENT AUTO 0 % (0-1); LYMPHOCYTES ABSOLUTE AUTO 0.69 K/mm3 (0.84-5.20); LYMPHOCYTES PERCENT AUTO 6 % (21-46); MONOCYTES PERCENT AUTO 8 % (4-13); Mean Corpuscular HGB 32.3 pg (26.0-34.0); Mean Corpuscular HGB Conc 34.8 g/dL (31.5-36.5); Mean Corpuscular Volume 93 fL (80-100); Mean Platelet Volume 10.1 fL (9.1-12.4); NEUTROPHILS ABSOLUTE AUTO 10.38 K/mm3 (1.96-9.15); NEUTROPHILS PERCENT AUTO 86 % (41-73); Platelet Count 237 K/mm3 (150-400); RDW Coefficient Variation 11.6 % (11.7-14.2); RDW Standard Deviation 39.6 fL (35.1-46.3); Red Blood Cell Count 4.61 M/mm3 (4.30-5.90); White Blood Cell Count 12.05 K/mm3 (4.00-11.30)
[2022-05-18 01:10] LABS: Albumin, Blood 4.4 g/dL (3.4-5.0); Albumin/Globulin Ratio 1.4 (0.8-1.8); Bilirubin, Total 0.8 mg/dL (0.1-1.0); Bun/Creatinine Ratio 18.1 (12.0-20.0); Calcium, Blood 9.4 mg/dL (8.5-10.1); Creatinine, Blood 0.77 mg/dL (0.60-1.20); Globulin, Blood 3.1 g/dL (2.2-4.0); Potassium, Blood 4.7 mmol/L (3.5-5.5); Total Protein, Blood 7.5 g/dL (6.4-8.2)
== END 2022-05-18 03:10 | disposition home or self-care (01) ==
LOC: ER 23:54
PROVIDERS: Student in an Organized Health Care Education/Training Program
DX: R30.0 Dysuria (principal); R11.2 Nausea with vomiting, unspecified; R00.2 Palpitations; T43.015A Adverse effect of tricyclic antidepressants, initial encounter; J45.909 Unspecified asthma, uncomplicated; Z79.899 Other long term (current) drug therapy
CPT/HCPCS: 51798; 80053; 85025; 93005; 93010; J2405; J7030

== ENCOUNTER → 2022-08-16 | Outpatient (CLI) | payer OTHER ==
[~2022-08-16] MED LIST changes: +CLOMIPRAMINE HC25 M1 PO
[2022-08-16 19:21] LABS: U Amphetamine Screen Not Detected; U Barbituate Screen Not Detected; U Benzodiazapine Screen Not Detected; U Buprenorphine Screen Not Detected; U Cannabinoids Screen Not Detected; U Cocaine Screen Not Detected; U Methadone Screen Not Detected; U Methamphetamine Screen Not Detected; U Opiates Screen Not Detected; U Oxycodone Screen Not Detected; U Phencyclidine Screen Not Detected; U Propoxyphene Screen Not Detected
== END ==
LOC: LAB SHORT 16:40
PROVIDERS: Nurse Practitioner Family
DX: Z51.81 Encounter for therapeutic drug level monitoring (principal); Z79.899 Other long term (current) drug therapy

== ENCOUNTER 2022-08-31 11:46 | Emergency (ER) | payer OTHER ==
[~2022-08-31] VITALS: Ht 177.8 cm; Wt 68.0 kg
[2022-08-31] MEDS ORDERED: ONDA4ODT MM (12:26)
== END 2022-08-31 12:31 | disposition home or self-care (01) ==
LOC: ER 11:46
DX: Z76.0 Encounter for issue of repeat prescription (principal); Z79.899 Other long term (current) drug therapy
CPT/HCPCS: 99283; A9270

== ENCOUNTER 2022-11-04 22:23 | Emergency (ER) | payer OTHER ==
[~2022-11-04] VITALS: Ht 167.6 cm; Wt 59.0 kg
[2022-11-04 23:21] LABS: BASOPHILS ABSOLUTE AUTO 0.01 K/mm3 (0.00-0.23); BASOPHILS PERCENT AUTO 0 % (0-2); EOSINOPHILS PERCENT AUTO 3 % (0-6); Hemoglobin 9.4 g/dL (13.5-17.5); IMMATURE GRAN ABSOLUTE AUTO 0.08 K/mm3 (0.00-0.10); IMMATURE GRAN PERCENT AUTO 1 % (0-1); LYMPHOCYTES PERCENT AUTO 18 % (21-46); MONOCYTES ABSOLUTE AUTO 0.89 K/mm3 (0.16-1.47); MONOCYTES PERCENT AUTO 11 % (4-13); Mean Corpuscular HGB 31.6 pg (26.0-34.0); Mean Corpuscular HGB Conc 34.8 g/dL (31.5-36.5); Mean Corpuscular Volume 91 fL (80-100); Mean Platelet Volume 9.7 fL (9.1-12.4); NEUTROPHILS ABSOLUTE AUTO 5.27 K/mm3 (1.96-9.15); NEUTROPHILS PERCENT AUTO 67 % (41-73); Platelet Count 263 K/mm3 (150-400); RDW Coefficient Variation 12.3 % (11.7-14.2); Red Blood Cell Count 2.97 M/mm3 (4.30-5.90); White Blood Cell Count 7.85 K/mm3 (4.00-11.30)
[2022-11-04 23:39] LABS: Albumin, Blood 2.7 g/dL (3.4-5.0); Albumin/Globulin Ratio 0.9 (0.8-1.8); Bilirubin, Total 1.4 mg/dL (0.1-1.0); Calcium, Blood 8.4 mg/dL (8.5-10.1); Creatinine, Blood 0.65 mg/dL (0.60-1.20); Globulin, Blood 2.9 g/dL (2.2-4.0); Potassium, Blood 3.9 mmol/L (3.5-5.5); Total Protein, Blood 5.6 g/dL (6.4-8.2)
[2022-11-05 01:00] VITALS: BP 115/66
[2022-11-05 01:40] LABS: Source, Urine Clean Catch
[2022-11-05 01:43] LABS: Bilirubin, Urine Neg (Neg); Blood, Urine Neg (Neg); Glucose Qualitative, Urine Neg (Neg); Ketones, Urine Neg (Neg); Leukocyte Esterase, Urine Neg (Neg); Nitrite, Urine Neg (Neg); Protein, Urine Neg (Neg); Urobilinogen, Urine NORM (Normal)
[2022-11-05 02:11] LABS: Appearance, Urine Clear (Clear); Color, Urine Yellow (P-Yellow)
== END 2022-11-05 03:03 | disposition home or self-care (01) ==
LOC: ER 22:23
PROVIDERS: Student in an Organized Health Care Education/Training Program
DX: M79.605 Pain in left leg (principal); M79.604 Pain in right leg; E86.0 Dehydration; D64.9 Anemia, unspecified; R07.2 Precordial pain; R30.0 Dysuria; J45.909 Unspecified asthma, uncomplicated; Z88.0 Allergy status to penicillin; Z79.899 Other long term (current) drug therapy
CPT/HCPCS: 80053; 81003; 85025; 93005; 93010; 96361; 96374; 96375; 99284-25; A9270; J1885; J2405; J3010; J7030

== ENCOUNTER → 2022-11-10 | Outpatient (CLI) | payer OTHER | LOC: LAB SHORT 15:55 | DX: R35.0 Frequency of micturition (principal) | CPT/HCPCS: 87086 ==